=== PATIENT | male | born 1945 | race Caucasian/White ===

== ENCOUNTER 2023-07-31 13:12 | Emergency (ER) | payer MEDICARE, OTHER ==
[~2023-07-31] VITALS: Ht 172.7 cm; Wt 78.9 kg
[2023-07-31] MEDS ORDERED: METOPROLOL SUC100 MG PO (13:23)
[2023-07-31] MEDS ORDERED: OXYMETAZOLINE HCL 30 ML BTL NAS ONE (14:45)
[2023-07-31 16:48] VITALS: BP 177/93
== END 2023-07-31 16:49 | disposition home or self-care (01) ==
LOC: ED 13:12
DX: R04.0 Epistaxis (principal); I10 Essential (primary) hypertension; Z88.0 Allergy status to penicillin
CPT/HCPCS: 30903; 99283-25